=== PATIENT | male | born 1990 ===

== ENCOUNTER 2017-12-15 18:29 | Emergency (ER) | payer OTHER ==
--- NOTE | 2017-12-15 20:15 | UC ---
Respiratory Complaint HPI - HPI Summary HPI Summary: 27 year old male with low grade fever. c/o not feeling well since Tuesday. He has sinus congestion, headache, cough, sore throat. he has not been able to get to work. he has taken children's ibuprofen. [ End ] - History of Current Complaint Chief Complaint: UCGeneralIllness Stated Complaint: FEVER, DIZZINESS Time Seen by Provider: 12/15/17 20:10 Hx Obtained From: Patient Onset/Duration: Gradual Onset Timing: Constant Severity Initially: Mild Severity Currently: Moderate Pain Intensity: 6 Character: Cough: Productive Associated Signs And Symptoms: Positive: Nasal Congestion, Sinus Discomfort - Allergies/Home Medications Allergies/Adverse Reactions: Allergies Allergy/AdvReac Type Severity Reaction Status Date / Time banana Allergy Unknown Verified 12/15/17 19:55 Reaction Details Penicillins Allergy Unknown Verified 12/15/17 19:55 Reaction Details Sulfa (Sulfonamide Allergy Unknown Verified 12/15/17 19:55 Antibiotics) Reaction Details PMH/Surg Hx/FS Hx/Imm Hx Previously Healthy: Yes - Surgical History Surgical History: Yes Surgery Procedure, Year, and Place: ear tubes - Family History Known Family History: Negative: Respiratory Disease - Social History Occupation: Employed Full-time Lives: With Family Alcohol Use: None Substance Use Type: None Smoking Status (MU): Heavy Every Day Tobacco Smoker Review of Systems Constitutional: Fever, Chills, Fatigue ENT: Sore Throat, Ear Ache, Nasal Discharge, Sinus Congestion, Sinus Pain/ Tenderness Is Patient Immunocompromised?: No All Other Systems Reviewed And Are Negative: Yes Physical Exam Triage Information Reviewed: Yes Appearance: Well-Appearing, No Pain Distress, Well-Nourished Vital Signs: Initial Vital Signs Temp 100.8 F 12/15/17 19:50 Pulse 95 12/15/17 19:50 Resp 14 12/15/17 19:50 BP 122/77 12/15/17 19:50 Pulse Ox 100 12/15/17 19:50 Vital Signs Reviewed: Yes Eye Exam: Normal ENT Exam: Normal ENT: Positive: Pharyngeal erythema, Nasal congestion, Nasal drainage, TM dull - left, TM red - left, Sinus tenderness Dental Exam: Normal Neck exam: Normal Neck: Positive: 1 Respiratory Exam: Normal Cardiovascular Exam: Normal Musculoskeletal Exam: Normal Neurological Exam: Normal Psychological Exam: Normal Skin Exam: Normal UC Diagnostic Evaluation - Laboratory O2 Sat by Pulse Oximetry: 100 Respiratory Course/Dx - Differential Dx/Diagnosis Differential Diagnosis/HQI/PQRI: Bronchitis, Lower Resp Infection, Sinusitis Provider Diagnoses: Left AOM. Sinusitis. Pharygitis Discharge - Sign-Out/Discharge Documenting (check all that apply): Discharge - Discharge Plan Condition: Good Disposition: HOME Prescriptions: Azithromycin 100 MG/5 ML SUSP* [Zithromax SUSP* 100 MG/5 ML] 250 mg PO DAILY 4 Days #1 btl Meclizine TAB* [Antivert 12.5 TAB*] 25 mg PO TID PRN #10 tab PRN Reason: Vertigo Patient Education Materials: Vertigo (ED), Ear Infection (ED) Referrals: No Primary Care Phys,NOPCP [Primary Care Provider] - 4 Days - Billing Disposition and Condition Condition: GOOD Disposition: HOME
[2017-12-15] MEDS ORDERED: Azithromycin 100 MG/5 ML SUSP* 100 MG/5 ML BTL PO ONE (20:40)
== END 2017-12-15 21:03 | disposition home or self-care (01) ==
LOC: UCCORT 18:29
DX: H66.92 Otitis media, unspecified, left ear (principal); J32.9 Chronic sinusitis, unspecified; J02.9 Acute pharyngitis, unspecified; Z88.2 Allergy status to sulfonamides; F17.210 Nicotine dependence, cigarettes, uncomplicated; Z88.0 Allergy status to penicillin; Z91.018 Allergy to other foods
CPT/HCPCS: 99202; A9270-GY; G0463